=== PATIENT | female | born 1945 | race Caucasian/White ===

== ENCOUNTER 2018-01-27 10:27 | Emergency (ER) | payer OTHER ==
[~2018-01-27] VITALS: Ht 160 cm; Wt 61.7 kg
[2018-01-27 10:39] VITALS: Ht 160 cm; Wt 61.7 kg
[2018-01-27 11:45] LABS: CALCIUM 9.1 mg/dL (8.5-10.1); CHLORIDE SERUM 99 mmol/L (98-107); CREATININE SERUM 1.2 mg/dL (0.6-1.0); GLUCOSE SERUM 148 mg/dL (74-106); SODIUM SERUM 136 mmol/L (136-145)
[2018-01-27 11:51] LABS: ALKALINE PHOSPHATASE 70 U/L (46-116); ALT/SGPT 20 U/L (14-59); AST/SGOT 17 U/L (15-37); BILIRUBIN TOTAL 0.86 mg/dL (0.20-1.00); CHOLESTEROL 142 mg/dL (<200); HDL CHOLESTEROL 53 mg/dL (40-60)
[2018-01-27 11:53] LABS: ALBUMIN 3.2 g/dL (3.4-5.0)
[2018-01-27 11:57] LABS: UA SPECIFIC GRAVITY >=1.030 (1.005-1.035); microscopic required? YES; urine erythrocyte 2+ (NEGATIVE)
[2018-01-27 12:40] LABS: BASOPHIL % 0.2 % (0-2); PLATELET COUNT 227 x10^3mcL (130-400); RED CELL DISTRIBUTION WIDTH 12.6 % (11.5-14.5)
[2018-01-27 13:48] VITALS: BP 138/81
== END 2018-01-27 13:48 | disposition home or self-care (01) ==
LOC: ED 10:27
PROVIDERS: Emergency Medicine
DX: J12.9 Viral pneumonia, unspecified (principal); J04.0 Acute laryngitis; R10.9 Unspecified abdominal pain; M54.9 Dorsalgia, unspecified; I10 Essential (primary) hypertension; E03.9 Hypothyroidism, unspecified
CPT/HCPCS: 83880; J1100; J7030; Q0092

== ENCOUNTER 2019-06-03 12:16 | Emergency (ER) | payer OTHER ==
[~2019-06-03] VITALS: Ht 160 cm; Wt 62.6 kg
[2019-06-03 13:06] VITALS: Ht 160 cm; Wt 62.6 kg
[2019-06-03 14:52] LABS: BASOPHIL % 0.3 % (0-2); PLATELET COUNT 188 x10^3mcL (130-400); RED CELL DISTRIBUTION WIDTH 13.7 % (11.5-14.5)
[2019-06-03 15:15] LABS: CALCIUM 8.9 mg/dL (8.5-10.1); CARBON DIOXIDE 25.6 mmol/L (21-32); CHLORIDE SERUM 105 mmol/L (98-107); GLUCOSE SERUM 85 mg/dL (74-106); POTASSIUM SERUM 3.8 mmol/L (3.5-5.1); SODIUM SERUM 141 mmol/L (136-145)
[2019-06-03 15:20] LABS: ALBUMIN 3.5 g/dL (3.4-5.0); ALKALINE PHOSPHATASE 63 U/L (46-116); ALT/SGPT 28 U/L (14-59); AST/SGOT 27 U/L (15-37); BILIRUBIN TOTAL 0.4 mg/dL (0.20-1.00); TOTAL PROTEIN, SERUM 7.5 g/dL (6.4-8.2)
[2019-06-03 15:50] LABS: UA SPECIFIC GRAVITY >=1.030 (1.005-1.035); microscopic required? YES; urine erythrocyte 2+ (NEGATIVE)
[2019-06-03 16:51] VITALS: BP 140/67
== END 2019-06-03 16:51 | disposition home or self-care (01) ==
LOC: ED 12:16
PROVIDERS: Emergency Medicine
DX: R10.9 Unspecified abdominal pain (principal); M54.9 Dorsalgia, unspecified; I10 Essential (primary) hypertension; E03.9 Hypothyroidism, unspecified; Z90.89 Acquired absence of other organs
CPT/HCPCS: J1885

== ENCOUNTER 2019-06-04 11:48 | Emergency (ER) | payer OTHER ==
[~2019-06-04] VITALS: Ht 160 cm; Wt 62.6 kg
[2019-06-04 11:56] VITALS: Ht 160 cm; Wt 62.6 kg
[2019-06-04 13:04] VITALS: BP 137/63
== END 2019-06-04 13:04 | disposition home or self-care (01) ==
LOC: ED 11:48
DX: M54.9 Dorsalgia, unspecified (principal); R05 Cough; I10 Essential (primary) hypertension; E03.9 Hypothyroidism, unspecified; Z98.890 Other specified postprocedural states; Z13.89 Encounter for screening for other disorder

== ENCOUNTER 2020-02-16 03:35 | Emergency (ER) | payer OTHER ==
[~2020-02-16] VITALS: Ht 160 cm; Wt 59.4 kg
[2020-02-16 03:56] VITALS: Ht 160 cm; Wt 59.4 kg
[2020-02-16 09:34] VITALS: BP 148/74
== END 2020-02-16 09:34 | disposition home or self-care (01) ==
LOC: ED 03:35
DX: S05.02XA Injury of conjunctiva and corneal abrasion without foreign body, left eye, initial encounter (principal); S05.01XA Injury of conjunctiva and corneal abrasion without foreign body, right eye, initial encounter; H10.13 Acute atopic conjunctivitis, bilateral; I10 Essential (primary) hypertension; E03.9 Hypothyroidism, unspecified; Z90.89 Acquired absence of other organs; X58.XXXA Exposure to other specified factors, initial encounter; Y93.89 Activity, other specified; Y92.89 Other specified places as the place of occurrence of the external cause; Y99.8 Other external cause status
CPT/HCPCS: J7512

== ENCOUNTER 2020-03-07 02:41 | Emergency (ER) | payer OTHER ==
[~2020-03-07] VITALS: Ht 160 cm; Wt 59.0 kg
[2020-03-07 02:56] VITALS: Ht 160 cm; Wt 59.0 kg
[2020-03-07 03:27] VITALS: BP 150/60
== END 2020-03-07 03:27 | disposition home or self-care (01) ==
LOC: ED 02:41
DX: L03.011 Cellulitis of right finger (principal)